=== PATIENT | female | born 1970 | race Caucasian/White ===

== ENCOUNTER 2019-02-28 22:57 | Emergency (ER) | payer OTHER ==
[~2019-02-28] VITALS: Ht 162.6 cm; Wt 104.3 kg
[2019-02-28 23:40] LABS: BE 2.7 mmol/L (-2 to +3); PO2 62.3 mmHg (75.0-100.0); pH 7.417 (7.340-7.450)
[2019-02-28 23:42] LABS: HEMATOCRIT 45.1 % (37.0-47.0); HEMOGLOBIN 14.5 gm/dL (12.0-15.0); MCH 26.9 pg (26.0-34.0); MCHC 32.2 g/dL (28.0-37.0); MCV 83.7 fL (80.0-100.0); MPV 8.7 fl. (7.2-11.1); NUCLEATED RBCS 0 /100WBC; PLATELET COUNT* 279 thou/uL (150-400); RBC 5.39 mil/uL (4.20-5.00); RDW-CV 15.8 % (10.5-14.5); WBC 9.2 thou/uL (4.0-11.0)
[2019-02-28 23:45] LABS: ANION GAP 7 mmol/L (7-16); BUN 15 mg/dL (7-18); CALCIUM 8.9 mg/dL (8.5-10.1); CHLORIDE 104 mmol/L (98-107); CO2 30 mmol/L (21-32); CREATININE 1.2 mg/dL (0.6-1.3); GLUCOSE 113 mg/dL (70-99); POTASSIUM 3.9 mmol/L (3.5-5.1); SODIUM 141 mmol/L (136-145)
[2019-02-28 23:54] LABS: ALBUMIN 3.4 g/dL (3.4-5.0); ALKALINE PHOSPHATASE 75 U/L (46-116); MAGNESIUM 1.8 mg/dL (1.8-2.4); SGOT 25 U/L (15-37); SGPT 49 U/L (30-65); TOTAL BILIRUBIN 0.3 mg/dL (<0.1-1.0); TOTAL PROTEIN 7.3 g/dL (6.4-8.2); TROPONIN-I LEVEL <0.06 ng/mL (<0.06)
[2019-03-01 00:14] LABS: URINE BILIRUBIN NEGATIVE (Negative); URINE BLOOD NEGATIVE (Negative); URINE CLARITY CLEAR; URINE COLOR YELLOW; URINE GLUCOSE-RANDOM NEGATIVE (Negative); URINE KETONES NEGATIVE (Negative); URINE LEUKOCYTES-REFLEX NEGATIVE (Negative); URINE NITRITE-REFLEX NEGATIVE (Negative); URINE PROTEIN 2+ (Negative); URINE SPECIFIC GRAVITY >= 1.030 (1.005-1.030); URINE UROBILINOGEN 0.2 E.U./dl (0.2-1.0)
[2019-03-01 00:29] LABS: ABSOLUTE BASOPHILS 0.1 thou/uL (0.0-0.2); ABSOLUTE LYMPHOCYTES 2.9 thou/uL (0.8-5.3); ABSOLUTE MONOCYTES 0.5 thou/uL (0.0-1.2); ABSOLUTE NEUTROPHILS 3.8 thou/uL (1.6-8.1)
[2019-03-01 00:30] LABS: PLATELET ESTIMATE ADEQUATE
[2019-03-01 00:32] LABS: HYALINE CASTS 4-10 Moderate /LPF (None Seen); SQUAMOUS >10 Many /LPF (0-3)
[2019-03-01 00:33] LABS: URINE WBC-REFLEX 0-5 Rare /HPF (0-5)
[2019-03-01 00:34] LABS: CALCIUM OXALATE 4-10 Moderate /LPF (None Seen); URINE RBC None Seen /HPF (0-2)
[2019-03-01] MEDS ORDERED: LEVAQUIN 750 M750 MG PO (01:18)
[2019-03-01] MEDS ORDERED: MUCUS RELIEF1200 MG PO (01:18)
[2019-03-01] MEDS ORDERED: PREDNISONE 20 M20 M1 PO (01:18)
[2019-03-01] MEDS ORDERED: IPRAT-ALBUT 0.5-3 ML INH (01:19)
[2019-03-01 01:41] VITALS: BP 150/97
--- NOTE | 2019-03-02 16:08 | EKG ---
[place] [address] ELECTROCARDIOGRAM REPORT Name: JEANINEMELI CARLO Room: [facility]#: [id number] Admission: 02/28/19 Attend Phys: Discharge: 03/01/19 Date of : 70 Report #: [id number] THIS REPORT FOR: //name// [facility] ED Test Date: 2019-02-28 Test Time: 23:05:37 Pat Name: MELI SOLORZANO Department: Room: Gender: F Qa Test Lead: DENICE : 1970 Requested By: Nadja Alegre Order Number: [id number] MD: Brandon Pritchard Measurements Intervals [place] Rate: 99 P: 70 MA: 156 QRS: 47 QRSD: 93 T: 54 QT: 350 QTc: 450 Interpretive Statements Sinus rhythm Baseline wander in lead(s) II,III,aVR,aVL,aVF,V1,V2,V3,V5,V6 No previous ECG available for comparison Electronically Signed On 03-02-2019 16:08:13 CDT by Brandon Pritchard [email or web address] <ELECTRONICALLY SIGNED> By: Brandon Pritchard MD, [facility] 03/02/19 1608 [id number] Brandon Pritchard MD, [facility] /EPI
== END 2019-03-01 01:42 | disposition home or self-care (01) ==
LOC: M.ERS 22:57
PROVIDERS: Personal Emergency Response Attendant
DX: J20.9 Acute bronchitis, unspecified (principal); J45.909 Unspecified asthma, uncomplicated; F17.210 Nicotine dependence, cigarettes, uncomplicated; Z90.49 Acquired absence of other specified parts of digestive tract; Z88.1 Allergy status to other antibiotic agents

== ENCOUNTER 2019-03-28 00:29 | Emergency (ER) | payer OTHER ==
[~2019-03-28] VITALS: Ht 162.6 cm; Wt 99.8 kg
[~2019-03-28 00:29] MED LIST: IPRAT-ALBUT 0.5-3 ML INH; LEVAQUIN 750 M750 MG PO; MUCUS RELIEF1200 MG PO; PREDNISONE 20 M20 M1 PO
[2019-03-28] MEDS ORDERED: PREDNISONE50 MG PO (02:00)
[2019-03-28 02:06] VITALS: BP 137/77
== END 2019-03-28 02:06 | disposition home or self-care (01) ==
LOC: M.ERS 00:29
DX: J98.01 Acute bronchospasm (principal); F17.210 Nicotine dependence, cigarettes, uncomplicated; Z88.1 Allergy status to other antibiotic agents; Z90.49 Acquired absence of other specified parts of digestive tract

== ENCOUNTER 2020-12-01 17:24 | Emergency (ER) | payer OTHER ==
[~2020-12-01] VITALS: Ht 165.1 cm; Wt 104.3 kg
[~2020-12-01 17:24] MED LIST changes: +PREDNISONE50 MG PO
[2020-12-01 18:31] LABS: URINE BILIRUBIN NEGATIVE (Negative); URINE BLOOD 2+ (Negative); URINE CLARITY CLEAR; URINE COLOR YELLOW; URINE GLUCOSE-RANDOM NEGATIVE (Negative); URINE KETONES NEGATIVE (Negative); URINE LEUKOCYTES-REFLEX NEGATIVE (Negative); URINE NITRITE-REFLEX NEGATIVE (Negative); URINE PROTEIN NEGATIVE (Negative); URINE SPECIFIC GRAVITY >= 1.030 (1.005-1.030); URINE UROBILINOGEN 0.2 E.U./dl (0.2-1.0)
[2020-12-01 18:42] LABS: ABSOLUTE BASOPHILS 0.1 thou/uL (0.0-0.2); ABSOLUTE EOSINOPHILS 0.6 thou/uL (0.0-0.7); ABSOLUTE LYMPHOCYTES 2.2 thou/uL (0.8-5.3); ABSOLUTE MONOCYTES 0.8 thou/uL (0.0-1.2); ABSOLUTE NEUTROPHILS 6.8 thou/uL (1.6-8.1); BASOPHILS 0.8 %; EOSINOPHILS 6.1 %; HEMATOCRIT 39.4 % (37.0-47.0); HEMOGLOBIN 12.9 gm/dL (12.0-15.0); MCH 26.3 pg (26.0-34.0); MCHC 32.7 g/dL (28.0-37.0); MCV 80.5 fL (80.0-100.0); MONOCYTES 7.4 %; MPV 8.5 fl. (7.2-11.1); NUCLEATED RBCS 0 /100WBC; PLATELET COUNT* 278 thou/uL (150-400); POLYS 64.7 %; RBC 4.89 mil/uL (4.20-5.00); RDW-CV 15.2 % (10.5-14.5); WBC 10.5 thou/uL (4.0-11.0)
[2020-12-01 18:56] LABS: BACTERIA-REFLEX 1-9 Few /HPF (None Seen); CASTS None Seen /LPF (None Seen); CRYSTALS None Seen /LPF (None Seen); SQUAMOUS 4-10 Moderate /LPF (0-3); URINE RBC 0-2 Rare /HPF (0-2); URINE WBC-REFLEX 0-5 Rare /HPF (0-5)
[2020-12-01 18:56] LABS: CALCIUM 9.1 mg/dL (8.5-10.1); CREATININE 1.2 mg/dL (0.6-1.3); POTASSIUM 4.2 mmol/L (3.5-5.1)
[2020-12-01 19:01] LABS: ALBUMIN 3.5 g/dL (3.4-5.0); TOTAL BILIRUBIN 0.5 mg/dL (<0.1-1.0); TOTAL PROTEIN 7.4 g/dL (6.4-8.2)
[2020-12-01] MEDS ORDERED: TRAMADOL 50 MG50 MG PO (19:17)
[2020-12-01] MEDS ORDERED: FLOMAX0.4 MG PO (19:17)
[2020-12-01 19:30] VITALS: BP 176/98
== END 2020-12-01 19:32 | disposition home or self-care (01) ==
LOC: M.ERS 17:24
PROVIDERS: Physician Assistant
DX: N20.0 Calculus of kidney (principal); Z88.1 Allergy status to other antibiotic agents; Z90.49 Acquired absence of other specified parts of digestive tract

== ENCOUNTER 2020-12-16 17:05 | Emergency (ER) | payer OTHER ==
[~2020-12-16] VITALS: Ht 165.1 cm; Wt 104.3 kg
[~2020-12-16 17:05] MED LIST changes: +FLOMAX0.4 MG PO; +TRAMADOL 50 MG50 MG PO
[2020-12-16 17:26] LABS: ABSOLUTE BASOPHILS 0.1 thou/uL (0.0-0.2); ABSOLUTE EOSINOPHILS 0.6 thou/uL (0.0-0.7); ABSOLUTE LYMPHOCYTES 1.7 thou/uL (0.8-5.3); ABSOLUTE MONOCYTES 0.7 thou/uL (0.0-1.2); ABSOLUTE NEUTROPHILS 6.3 thou/uL (1.6-8.1); BASOPHILS 0.7 %; EOSINOPHILS 6.6 %; HEMATOCRIT 39.1 % (37.0-47.0); HEMOGLOBIN 12.9 gm/dL (12.0-15.0); LYMPHOCYTES 18.4 %; MCH 26.7 pg (26.0-34.0); MCHC 33.1 g/dL (28.0-37.0); MCV 80.6 fL (80.0-100.0); MONOCYTES 7.2 %; MPV 8.3 fl. (7.2-11.1); NUCLEATED RBCS 0 /100WBC; PLATELET COUNT* 270 thou/uL (150-400); POLYS 67.1 %; RBC 4.85 mil/uL (4.20-5.00); RDW-CV 15.7 % (10.5-14.5); WBC 9.5 thou/uL (4.0-11.0)
[2020-12-16 17:42] LABS: CALCIUM 8.7 mg/dL (8.5-10.1); CREATININE 0.8 mg/dL (0.6-1.3); POTASSIUM 4.3 mmol/L (3.5-5.1)
[2020-12-16 17:56] LABS: ALBUMIN 3.3 g/dL (3.4-5.0); CK-MB MASS 1.3 ng/mL (<0.5-3.6); MAGNESIUM 1.8 mg/dL (1.8-2.4); TOTAL BILIRUBIN 0.3 mg/dL (<0.1-1.0); TOTAL PROTEIN 7.4 g/dL (6.4-8.2)
[2020-12-16 18:15] VITALS: BP 207/110
--- NOTE | 2020-12-17 11:49 | EKG ---
[place] [address] ELECTROCARDIOGRAM REPORT Name: MELI SOLORZANO Room: [facility]#: [id number] Admission: 12/16/20 Attend Phys: Discharge: 12/16/20 Date of : 70 Date of Service: 12/16/20 1713 Report #: [id number] THIS REPORT FOR: //name// [facility] ED Test Date: 2020-12-16 Test Time: 17:13:23 Pat Name: MELI SOLORZANO Department: Room: Gender: F [employer]: LATISHA : 1970 Requested By: Jesu Barry Order Number: [id number] MD: Bartolo Freeman Measurements Intervals [place] Rate: 89 P: 51 [place]: 197 QRS: 13 QRSD: 103 T: 40 QT: 369 QTc: 449 Interpretive Statements Sinus rhythm Compared to ECG 02/28/2019 23:05:37 No significant changes Electronically Signed On 12-17-2020 11:48:54 CDT by Bartolo Freeman [email or web address] <ELECTRONICALLY SIGNED> By: Bartolo Freeman MD, [facility] 12/17/20 1148 1713 171 Bartolo Freeman MD, [facility] /EPI
== END 2020-12-16 18:16 | disposition home or self-care (01) ==
LOC: M.ERS 17:05
PROVIDERS: Family Medicine
DX: R07.89 Other chest pain (principal); F17.210 Nicotine dependence, cigarettes, uncomplicated; Z90.49 Acquired absence of other specified parts of digestive tract; Z88.1 Allergy status to other antibiotic agents